=== PATIENT | female | born 1935 | race Caucasian/White ===

== ENCOUNTER 2018-01-26 16:50 | Emergency (ER) | payer MEDICARE, OTHER ==
--- NOTE | 2018-01-26 17:17 | EDM.PDOC ---
ED HPI GENERAL MEDICAL PROBLEM - General Chief Complaint: Genitourinary Problem Stated Complaint: CONFUSION,DEMENTIA,UTI Time Seen by Provider: 01/26/18 17:00 Source of Information: Reports: Patient, Other (caregiver) History Limitations: Reports: No Limitations - History of Present Illness INITIAL COMMENTS - FREE TEXT/NARRATIVE: 82 YO WF presents to ER with 1 day history of mild confusion per caregiver. Pt had a similar episode of confusion in the recent past and was diagnosed with UTI. Caregiver states her symptoms are similar today. Pt reports some nasal congestion without coughing as well as mild frontal headache. Pt denies any chest pain, abdominal pain, fever/chills, nausea/vomiting. Pt with history of dementia. Caregiver states she had been at her baseline mental status until today. Onset: Today Location: Reports: Generalized Severity: Mild Improves with: Reports: None Worsens with: Reports: None Associated Symptoms: Reports: Confusion, Headaches. Denies: Chest Pain, Cough, Fever/Chills, Loss of Appetite, Malaise, Nausea/Vomiting, Rash, Shortness of Breath, Syncope, Weakness - Related Data Allergies Allergy/AdvReac Type Severity Reaction Status Date / Time No Known Drug Allergies Allergy Cannot Verified 01/26/18 17:06 Remember Home Meds: Home Meds Aspirin [Halfprin] 81 mg PO DAILY 01/26/18 [History] Biotin 1 mg PO DAILY 01/26/18 [History] Calcium Carbonate/Vitamin D3 [Calcium 500 + Vit D 400] 1 tab PO DAILY@1200 01/26 [History] Cephalexin [Keflex] 500 mg PO Q6H #40 capsule 01/26/18 [Rx] Cholecalciferol (Vitamin D3) [Vitamin D3] 1,000 unit PO DAILY 01/26/18 [History] Citalopram Hydrobromide [Celexa] 20 mg PO DAILY 01/26/18 [History] Multivitamin [Daily Multiple Vitamin] 1 tab PO DAILY 01/26/18 [History] Simvastatin [Zocor] 30 mg PO BEDTIME 01/26/18 [History] buPROPion [buPROPion XL] 300 mg PO DAILY 01/26/18 [History] ED ROS GENERAL - Review of Systems Review Of Systems: See Below Constitutional: Reports: No Symptoms HEENT: Reports: Sinus Problem Respiratory: Reports: No Symptoms Cardiovascular: Reports: No Symptoms Endocrine: Reports: No Symptoms GI/Abdominal: Reports: No Symptoms : Reports: No Symptoms Musculoskeletal: Reports: No Symptoms Skin: Reports: No Symptoms Neurological: Reports: Confusion, Dizziness, Headache. Denies: Numbness, Paresthesia, Seizure, Syncope, Tingling, Tremors, Trouble Speaking, Difficulty Walking, Weakness, Change in Speech, Gait Disturbance Psychiatric: Reports: Confusion Hematologic/Lymphatic: Reports: No Symptoms Immunologic: Reports: No Symptoms ED EXAM, GENERAL - Physical Exam Exam: See Below Exam Limited By: No Limitations General Appearance: Alert, WD/WN, No Apparent Distress Nose: Normal Inspection, Normal Mucosa, No Blood Throat/Mouth: Normal Inspection, Normal Lips, Normal Teeth, Normal Gums, Normal Oropharynx, Normal Voice, No Airway Compromise Head: Atraumatic, Normocephalic Neck: Normal Inspection, Supple, Non-Tender, Full Range of Motion Respiratory/Chest: No Respiratory Distress, Lungs Clear, Normal Breath Sounds, No Accessory Muscle Use, Chest Non-Tender Cardiovascular: Normal Peripheral Pulses, Regular Rate, Rhythm, No Edema, No Gallop, No JVD, No Murmur, No Rub GI/Abdominal: Normal Bowel Sounds, Soft, Non-Tender, No Organomegaly, No Distention, No Abnormal Bruit, No Mass Back Exam: Normal Inspection, Full Range of Motion, NT Extremities: Normal Inspection, Normal Range of Motion, Non-Tender, Normal Capillary Refill, No Pedal Edema Neurological: Alert, Oriented, CN II-XII Intact, Normal Cognition, Normal Gait, Normal Reflexes, No Motor/Sensory Deficits Psychiatric: Normal Affect, Normal Mood Skin Exam: Warm, Dry, Intact, Normal Color, No Rash Lymphatic: No Adenopathy Course - Vital Signs Last Recorded V/S: Last Vital Signs Temp 36.6 C 01/26/18 16:59 Pulse 84 01/26/18 16:59 Resp 16 01/26/18 16:59 BP 128/66 01/26/18 16:59 Pulse Ox 94 L 01/26/18 16:59 - Orders/Labs/Meds Orders: Active Orders 24 hr Category Date Time Status Chest 2V [CR] Stat Exams 01/26/18 17:10 Taken Head wo Cont [CT] Stat Exams 01/26/18 17:10 Taken URINALYSIS W/MICROSCOPIC [UA W/MICROSCOPIC] [URIN] Stat Lab 01/26/18 17:00 Ordered Labs: Laboratory Tests 01/26/18 01/26/18 01/26/18 Range/Units 17:00 17:25 17:25 WBC 6.4 (5.0-10.0) 10^3/uL RBC 4.17 (3.80-5.50) 10^6/uL Hgb 13.0 (12.0-16.0) g/dL Hct 38.5 (37.0-47.0) % MCV 92.2 H (82.0-92.0) fL MCH 31.2 H (27.0-31.0) pg MCHC 33.9 (32.0-36.0) g/dL RDW 12.4 (11.5-14.5) % Plt Count 201 (150-300) 10^3/uL MPV 8.2 (7.4-10.4) fL Neut % (Auto) 72.7 H (50.0-70.0) % Lymph % (Auto) 10.7 L (20.0-40.0) % [place] % (Auto) 15.5 H (2.0-8.0) % Eos % (Auto) 0.6 L (1.0-3.0) % Baso % (Auto) 0.5 (0.0-1.0) % Neut # (Auto) 4.7 (2.5-7.0) 10^3/uL Lymph # (Auto) 0.7 L (1.0-4.0) 10^3/uL [place] # (Auto) 1.0 H (0.1-0.8) 10^3/uL Eos # (Auto) 0.0 L (0.1-0.3) 10^3/uL Baso # (Auto) 0.0 (0.0-0.1) 10^3/uL Sodium 137 (136-145) mmol/L Potassium 4.2 (3.3-5.3) mmol/L Chloride 101 (98-115) mmol/L Carbon Dioxide 27.6 (21.0-32.0) mmol/L BUN 15 (6-25) mg/dL Creatinine 0.89 (0.51-1.17) mg/dL Est Cr Clr Drug Dosing 49.03 mL/min Estimated GFR (MDRD) > 60 mL/min Glucose 146 H (70-110) mg/dL Calcium 9.5 (8.7-10.3) mg/dL Specimen Type Urinvoid Urine Color Yellow (YELLOW) Urine Appearance Slightly cloudy H (CLEAR) Urine pH 6.5 (5.0-9.0) Ur Specific [place] 1.025 (1.005-1.030) Urine Protein Negative (NEGATIVE) mg/dL Urine Glucose (UA) 100 H (NEGATIVE) mg/dL Urine Ketones Negative (NEGATIVE) mg/dL Urine Occult Blood Trace-intact H (NEGATIVE) Urine Nitrite Negative (NEGATIVE) Urine Bilirubin Negative (NEGATIVE) Urine Urobilinogen 0.2 (0.2-1.0) E.U./dL Ur Leukocyte Esterase Negative (NEGATIVE) Urine RBC 10-20 H /HPF Urine WBC 0-5 /HPF Ur Epithelial Cells Few /LPF Amorphous Sediment Moderate H (0/HPF) /HPF Urine Bacteria Few (NONE TO FEW) /HPF - Radiology Interpretation Free Text/Narrative:: CXR- NAD CT head- NAD Departure - Departure Time of Disposition: 18:09 Disposition: Home, Self-Care 01 Condition: Good Clinical Impression: UTI, Urinary tract infectious disease, Confusion - Discharge Information Prescriptions: Cephalexin [Keflex] 500 mg PO Q6H #40 capsule Instructions: Urinary Tract Infection, Adult, [id number] Referrals: Farida Banerjee MD [Primary Care Provider] - Forms: ED Department Discharge - My Orders Last 24 Hours: My Active Orders 01/26/18 17:00 URINALYSIS W/MICROSCOPIC [UA W/MICROSCOPIC] [URIN] Stat 01/26/18 17:10 Chest 2V [CR] Stat Head wo Cont [CT] Stat - Assessment/Plan Last 24 Hours: My Active Orders 01/26/18 17:00 URINALYSIS W/MICROSCOPIC [UA W/MICROSCOPIC] [URIN] Stat 01/26/18 17:10 Chest 2V [CR] Stat Head wo Cont [CT] Stat Assessment:: 1. mild confusion with underlying progressive dementia 2. UTI Plan: 1. Keflex 500mg PO Q6 2. follow up in clinic in 1-2 days for further evaluation and treatment 3. return to ER for worsening symptoms 4. discharge home
[2018-01-26 17:45] LABS: CHLORIDE,CL 101 mmol/L (98-115); SODIUM,NA 137 mmol/L (136-145)
[2018-01-26] MEDS: Lidocaine 1% 20 ML MDV ONE (18:16)
[2018-01-26] MEDS: cefTRIAXone 1 GM Vial IM ONE (18:17)
== END 2018-01-26 18:25 | disposition home or self-care (01) ==
LOC: KA.ED 16:50
DX: N39.0 Urinary tract infection, site not specified (principal); R41.0 Disorientation, unspecified; Z79.82 Long term (current) use of aspirin; Z79.899 Other long term (current) drug therapy
CPT/HCPCS: 36415; 70450; 71046; 80048; 81001; 85025; 87086; 96372; 99284; 99285; J0696

== ENCOUNTER 2019-02-05 08:25 | Emergency (ER) | payer MEDICARE, OTHER ==
[2019-02-05] MEDS ORDERED: Sodium Chloride 0.9% 1,000 ML IV ONE (09:30)
[2019-02-05 09:56] LABS: ANION GAP 4.4 mmol/L (5-15); CHLORIDE,CL 105 mmol/L (98-115); SODIUM,NA 132 mmol/L (136-145)
--- NOTE | 2019-02-05 10:08 | EDM.PDOC ---
ED HPI GENERAL MEDICAL PROBLEM - General Chief Complaint: General Stated Complaint: CONFUSION, WEAK SPELLS Time Seen by Provider: 02/05/19 09:00 Source of Information: Reports: Patient, Family (daughter) History Limitations: Reports: No Limitations - History of Present Illness INITIAL COMMENTS - FREE TEXT/NARRATIVE: 83-year-old female is brought in this morning by her daughter for an evaluation. Mrs. Klein has a history of dementia and her daughter comes back every 2 weeks from [facility] to stay with her. When she is gone they have a health care providers in her mom's home. She has some early Alzheimer's dementia and therefore has some confusion and short-term memory loss. Yesterday evening her mother was up 6 or 7 times throughout the night walking around the house which is unusual behavior for her. There is no agitation. She has not had any recent illnesses or fever. She's not had a recent cold. States that she just kind of felt out of sorts yesterday. She described this episode as a dizziness. She denies been unsteady on her feet. She denies vertigo. She is not having any nasal congestion or ear pain or sore throat. She's not having any shortness of breath or chest pain. She denies any abdominal pain, constipation or diarrhea, no dysuria or hematuria. She does seem to drink a fair amount of water throughout the day. She takes medication for blood pressure cholesterol depression and diabetes. Her blood sugars have been running in the mid 100s to 200. She takes metformin for this. She is not on insulin. She does not take any medication for Alzheimer's. She is not on Aricept. Today the patient and her daughter both agree she seems to be in her normal state. We'll check her electrolytes, CBC, and UA to make sure that there is no underlying infection. Onset Date: 02/04/19 Duration: Resolved Prior to Arrival Location: Reports: Generalized Improves with: Reports: None Worsens with: Reports: None Associated Symptoms: Reports: Confusion. Denies: Chest Pain, Cough, Fever/ Chills, Headaches, Nausea/Vomiting, Shortness of Breath, Syncope, Weakness - Related Data Allergies Allergy/AdvReac Type Severity Reaction Status Date / Time No Known Drug Allergies Allergy Cannot Verified 02/05/19 09:54 Remember Home Meds: Home Meds Aspirin [Halfprin] 81 mg PO DAILY 01/26/18 [History] Biotin 1 mg PO DAILY 01/26/18 [History] Calcium Carbonate/Vitamin D3 [Calcium 500 + Vit D 400] 1 tab PO DAILY@1200 01/26 [History] Cholecalciferol (Vitamin D3) [Vitamin D3] 1,000 unit PO DAILY 01/26/18 [History] Citalopram Hydrobromide [Celexa] 20 mg PO DAILY 01/26/18 [History] Multivitamin [Daily Multiple Vitamin] 1 tab PO DAILY 01/26/18 [History] Simvastatin [Zocor] 30 mg PO BEDTIME 01/26/18 [History] buPROPion [buPROPion XL] 300 mg PO DAILY 01/26/18 [History] 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 Denies: Ear Pain, Sinus Problem, Throat Pain, Throat Swelling, Vertigo Respiratory: Denies: Shortness of Breath, Wheezing Cardiovascular: Reports: Blood Pressure Problem, Lightheadedness. Denies: Chest Pain, Dyspnea on Exertion, Palpitations Endocrine: Reports: High Glucose GI/Abdominal: Denies: Abdominal Pain, Bloody Stool, Constipation, Diarrhea, Nausea, Vomiting Musculoskeletal: Reports: No Symptoms Skin: Reports: No Symptoms Neurological: Reports: Confusion (dementia, Up several times last night which is unusual.). Denies: Headache, Numbness, Paresthesia, Trouble Speaking, Difficulty Walking, Change in Speech, Gait Disturbance Psychiatric: Reports: Confusion (dementia) Hematologic/Lymphatic: Reports: No Symptoms Immunologic: Reports: No Symptoms ED EXAM, GENERAL - Physical Exam Exam: See Below Exam Limited By: No Limitations (answers questions but doesnt remember events from night before. Ask her daughter for those answers) General Appearance: Alert, WD/WN, No Apparent Distress Eye Exam: Bilateral Eye: EOMI, PERRL Ears: Normal External Exam, Normal Canal, Hearing Grossly Normal, Normal TMs Ear Exam: Bilateral Ear: Auricle Normal, Canal Normal, TM normal Nose: Normal Inspection, Normal Mucosa, No Blood Throat/Mouth: Normal Inspection, Normal Lips, Normal Teeth, Normal Gums, Normal Oropharynx, Normal Voice, No Airway Compromise Head: Atraumatic, Normocephalic Neck: Normal Inspection, Supple, Non-Tender, Full Range of Motion. No: Lymphadenopathy (L), Lymphadenopathy (R) Respiratory/Chest: No Respiratory Distress, Lungs Clear, Normal Breath Sounds Cardiovascular: Normal Peripheral Pulses, Regular Rate, Rhythm, No Edema Peripheral Pulses: 2+: Carotid (L), Carotid (R), Radial (L), Radial (R) GI/Abdominal: Soft, Non-Tender Back Exam: Normal Inspection Extremities: Normal Inspection, Normal Range of Motion, Non-Tender, No Pedal Edema Neurological: Alert, Oriented, CN II-XII Intact, Normal Cognition, Normal Gait, No Motor/Sensory Deficits Psychiatric: Normal Affect, Normal Mood Skin Exam: Warm, Dry, Intact, Normal Color, No Rash Lymphatic: No Adenopathy Course - Vital Signs Last Recorded V/S: Last Vital Signs Temp 98.1 F 02/05/19 09:01 Pulse 68 02/05/19 09:01 Resp 19 02/05/19 09:01 BP 133/66 02/05/19 09:01 Pulse Ox 92 L 02/05/19 09:01 - Orders/Labs/Meds Orders: Active Orders 24 hr Category Date Time Status CULTURE URINE [RM] Stat Lab 02/05/19 10:21 Ordered Labs: Laboratory Tests 02/05/19 02/05/19 02/05/19 Range/Units 09:30 09:30 09:42 WBC 8.22 (5.00-10.00) 10^3/uL RBC 4.02 (3.80-5.50) 10^6/uL Hgb 13.1 (12.0-16.0) g/dL Hct 37.1 (37.0-47.0) % MCV 92.3 H (82.0-92.0) fL MCH 32.6 H (27.0-31.0) pg MCHC 35.3 (32.0-36.0) g/dL RDW 12.0 (11.5-14.5) % Plt Count 238 (150-400) 10^3/uL MPV 10.3 (7.4-10.4) fL Immature Gran % (Auto) 0.2 (0.0-5.0) % Neut % (Auto) 72.5 H (50.0-70.0) % Lymph % (Auto) 17.3 L (20.0-40.0) % [place] % (Auto) 9.1 H (2.0-8.0) % Eos % (Auto) 0.7 L (1.0-3.0) % Baso % (Auto) 0.2 (0.0-1.0) % Immature Gran # (Auto) 0.02 (0.00-0.50) 10^3/uL Neut # (Auto) 5.95 (2.50-7.00) 10^3/uL Lymph # (Auto) 1.42 (1.00-4.00) 10^3/uL [place] # (Auto) 0.75 (0.10-0.80) 10^3/uL Eos # (Auto) 0.06 L (0.10-0.30) 10^3/uL Baso # (Auto) 0.02 (0.00-0.10) 10^3/uL Sodium 132 L (136-145) mmol/L Potassium 4.0 (3.3-5.3) mmol/L Chloride 105 (98-115) mmol/L Carbon Dioxide 26.6 (21.0-32.0) mmol/L Anion Gap 4.4 L (5-15) mmol/L BUN 18 (6-25) mg/dL Creatinine 0.95 (0.51-1.17) mg/dL Est Cr Clr Drug Dosing TNP Estimated GFR (MDRD) 56 mL/min Glucose 111 H (75 - 99) mg/dL Calcium 9.7 (8.7-10.3) mg/dL Specimen Type Urincc Urine Color Yellow (YELLOW) Urine Appearance Clear (CLEAR) Urine pH 7.0 (5.0-9.0) Ur Specific [place] 1.015 (1.005-1.030) Urine Protein Negative (NEGATIVE) mg/dL Urine Glucose (UA) Negative (NEGATIVE) mg/dL Urine Ketones Negative (NEGATIVE) mg/dL Urine Occult Blood Trace-intact H (NEGATIVE) Urine Nitrite Negative (NEGATIVE) Urine Bilirubin Negative (NEGATIVE) Urine Urobilinogen 0.2 (0.2-1.0) E.U./dL Ur Leukocyte Esterase Trace H (NEGATIVE) Urine RBC 0-5 (0-5) /HPF Urine WBC 5-10 H (0-5) /HPF Ur Epithelial Cells Moderate H /LPF Amorphous Sediment Many H (0/HPF) /HPF Urine Bacteria Moderate H (NONE TO FEW) /HPF Meds: Medications Discontinued Medications Generic Name Dose Route Start Last Admin Trade Name Yolanda PRN Reason Stop Dose Admin Sodium Chloride 1,000 mls @ 999 mls/hr 02/05/19 09:30 02/05/19 10:09 Normal Saline IV 02/05/19 10:30 999 mls/hr .BOLUS ONE Administration Departure - Departure Time of Disposition: 11:00 Disposition: Home, Self-Care 01 Condition: Good Clinical Impression: Hyponatremia Dementia Qualifiers: Dementia type: unspecified type Dementia behavioral disturbance: without behavioral disturbance Qualified Code(s): F03.90 - Unspecified dementia without behavioral disturbance - Discharge Information Referrals: Farida Banerjee MD [Primary Care Provider] - Forms: ED Department Discharge - My Orders Last 24 Hours: My Active Orders 02/05/19 10:21 CULTURE URINE [RM] Stat - Assessment/Plan Last 24 Hours: My Active Orders 02/05/19 10:21 CULTURE URINE [RM] Stat Assessment:: Early dementia Mild hyponatremia Plan: 1. Patient received 1 L of normal saline. This should help resolve mild hyponatremia. 2. Her urine culture showed moderate bacteria but also a moderate epithelial cells which is likely contaminant. Her urine looked clear without odor. We'll plan on culturing at bedtime [place] to treat this as this is likely contaminant. 3. Patient has a follow-up appointment this Thursday with Dr. Farida Burns encourage him to review her medications and her episode that she was seen in the emergency room today. Also have follow-up blood cultures with regards to her UA. 4. Encourage return to the emergency room and we've discussed signs and symptoms to look for for a stroke.
== END 2019-02-05 11:00 | disposition home or self-care (01) ==
LOC: KA.ED 08:25
DX: E87.1 Hypo-osmolality and hyponatremia (principal); F03.90 Unspecified dementia, unspecified severity, without behavioral disturbance, psychotic disturbance, mood disturbance, and anxiety; F32.9 Major depressive disorder, single episode, unspecified; Z79.82 Long term (current) use of aspirin; Z79.899 Other long term (current) drug therapy
CPT/HCPCS: 36415; 80048; 81001; 85025; 87086; 96360; 99284; 99284-25; J7030

== ENCOUNTER 2019-04-30 17:22 | Emergency (ER) | payer MEDICARE, OTHER ==
--- NOTE | 2019-04-30 18:45 | EDM.PDOC ---
ED HPI GENERAL MEDICAL PROBLEM - General Chief Complaint: Lower Extremity Injury/Pain Stated Complaint: LEFT LEG SWELLING Time Seen by Provider: 04/30/19 18:50 Source of Information: Reports: Patient History Limitations: Reports: No Limitations - History of Present Illness INITIAL COMMENTS - FREE TEXT/NARRATIVE: Patient is an 83-year-old female who presents to the emergency department this afternoon with a complaint of left lower extremity pain and edema. Patient states that she has occasional edema of lower extremities, but noticed that the left one is more swollen and is more painful. The symptoms started approximately 36 hours ago. Patient is currently on 81 mg aspirin daily, but not on any anticoagulation therapy. Patient has no history of DVTs or PEs. Patient denies shortness of breath, chest pain, abdominal pain, nausea, vomiting , diarrhea, or any trauma. Onset: Gradual Onset Date: 04/28/19 Duration: Day(s): Location: Reports: Lower Extremity, Left Severity: Mild Improves with: Reports: None Worsens with: Reports: None Associated Symptoms: Reports: No Other Symptoms. Denies: Chest Pain, Shortness of Breath Left Ankle Pain Score (Numeric/FACES): 3 - Related Data Allergies Allergy/AdvReac Type Severity Reaction Status Date / Time No Known Drug Allergies Allergy Cannot Verified 04/30/19 17:53 Remember Home Meds: Home Meds Aspirin [Halfprin] 81 mg PO DAILY 01/26/18 [History] Calcium Carbonate/Vitamin D3 [Calcium 500 + Vit D 400] 1 tab PO DAILY@1200 01/26 [History] Cholecalciferol (Vitamin D3) [Vitamin D3] 1,000 unit PO DAILY 01/26/18 [History] Citalopram Hydrobromide [Celexa] 20 mg PO DAILY 01/26/18 [History] Multivitamin [Daily Multiple Vitamin] 1 tab PO DAILY 01/26/18 [History] Simvastatin [Zocor] 30 mg PO BEDTIME 01/26/18 [History] buPROPion [buPROPion XL] 300 mg PO DAILY 01/26/18 [History] metFORMIN HCl [Metformin HCl] 500 mg PO DAILY 04/30/19 [History] Past Medical History HEENT History: Reports: Cataract, Impaired Vision Cardiovascular History: Reports: High Cholesterol, Hypertension Gastrointestinal History: Reports: None 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: Musculoskeletal History: Reports: None Neurological History: Reports: Other (See Below) Other Neuro History: dementia Psychiatric History: Reports: Anxiety, Dementia, Depression Endocrine/Metabolic History: Reports: Diabetes, Type II - Past Surgical History HEENT Surgical History: Reports: Cataract Surgery, Tonsillectomy Cardiovascular Surgical History: Reports: None GI Surgical History: Reports: Cholecystectomy, Colonoscopy Neurological Surgical History: Reports: None Social & Family History - Tobacco Use Smoking Status *Q: Never Smoker - Caffeine Use Caffeine Use: Reports: Coffee - Recreational Drug Use Recreational Drug Use: No Review of Systems - Review of Systems Review Of Systems: ROS reveals no pertinent complaints other than HPI. Constitutional: Reports: No Symptoms Eyes: Reports: No Symptoms Ears: Reports: No Symptoms Nose: Reports: No Symptoms Mouth/Throat: Reports: No Symptoms Respiratory: Reports: No Symptoms Cardiovascular: Reports: No Symptoms GI/Abdominal: Reports: No Symptoms Genitourinary: Reports: No Symptoms Musculoskeletal: Reports: Leg Pain (Left) Skin: Reports: Other (Left lower extremity edema) Neurological: Reports: No Symptoms Psychiatric: Reports: No Symptoms ED EXAM, GENERAL - Physical Exam Exam: See Below Exam Limited By: No Limitations General Appearance: Alert, WD/WN, No Apparent Distress Throat/Mouth: Normal Inspection, Normal Oropharynx, No Airway Compromise Head: Atraumatic, Normocephalic Neck: Normal Inspection Respiratory/Chest: No Respiratory Distress, Lungs Clear, Normal Breath Sounds, No Accessory Muscle Use, Chest Non-Tender Cardiovascular: Regular Rate, Rhythm, No Murmur GI/Abdominal: Normal Bowel Sounds, Soft, Non-Tender Back Exam: Normal Inspection. No: CVA Tenderness (L), CVA Tenderness (R) Extremities: Normal Capillary Refill, Pedal Edema (3+ left lower extremity. This extends from mid calf- Distal), Leg Pain Neurological: Alert, Oriented, Normal Cognition Psychiatric: Normal Affect, Normal Mood Skin Exam: Warm, Dry, Intact, Normal Color, No Rash Lymphatic: No Adenopathy Course - Vital Signs Last Recorded V/S: Last Vital Signs Temp 98.7 F 04/30/19 17:44 Pulse 77 04/30/19 17:44 Resp 20 04/30/19 17:44 BP 155/71 H 04/30/19 17:44 Pulse Ox 96 04/30/19 17:44 - Re-Assessments/Exams Free Text/Narrative Re-Assessment/Exam: 04/30/19 19:01 Patient afebrile, vital signs stable, discussed with patient and sister in length concern for possible DVT. Discussed with Dr. FERNANDES at [facility] and she will see patient upon presentation. Patient will proceed to [facility] via private vehicle. Departure - Departure Time of Disposition: 19:03 Disposition: Home, Self-Care 01 Condition: Good Clinical Impression: Lower extremity edema - Discharge Information Instructions: Peripheral Edema Referrals: Farida Banerjee MD [Primary Care Provider] - Additional Instructions: Proceed directly to [facility] emergency department for evaluation of lower extremity edema to rule out DVT. - Assessment/Plan Assessment:: Left lower extremity edema, suspicion for DVT Plan: Patient will proceed to [facility] via private vehicle
== END 2019-04-30 19:10 | disposition home or self-care (01) ==
LOC: KA.ED 17:22
DX: R60.0 Localized edema (principal); E78.00 Pure hypercholesterolemia, unspecified; I10 Essential (primary) hypertension; E11.9 Type 2 diabetes mellitus without complications; F32.9 Major depressive disorder, single episode, unspecified; F41.9 Anxiety disorder, unspecified; Z79.82 Long term (current) use of aspirin; Z79.899 Other long term (current) drug therapy; Z79.84 Long term (current) use of oral hypoglycemic drugs
CPT/HCPCS: 99283; 99284

== ENCOUNTER 2021-12-27 10:25 | Emergency (ER) | payer MEDICARE, OTHER | END 2021-12-27 11:30 | disposition home or self-care (01) | LOC: KA.ED 10:25 | DX: S00.03XA Contusion of scalp, initial encounter (principal); F03.90 Unspecified dementia, unspecified severity, without behavioral disturbance, psychotic disturbance, mood disturbance, and anxiety; E78.00 Pure hypercholesterolemia, unspecified; I10 Essential (primary) hypertension; E11.9 Type 2 diabetes mellitus without complications; Z79.84 Long term (current) use of oral hypoglycemic drugs; W18.09XA Striking against other object with subsequent fall, initial encounter | CPT/HCPCS: 70450; 99283-25; 99284 ==

== ENCOUNTER 2022-05-29 09:24 | Emergency (ER) | payer MEDICARE, OTHER | END 2022-05-29 11:45 | disposition home or self-care (01) | LOC: KA.ED 09:24 | DX: M17.11 Unilateral primary osteoarthritis, right knee (principal); M16.11 Unilateral primary osteoarthritis, right hip; M47.816 Spondylosis without myelopathy or radiculopathy, lumbar region; M53.3 Sacrococcygeal disorders, not elsewhere classified; I10 Essential (primary) hypertension; E11.9 Type 2 diabetes mellitus without complications; Z79.899 Other long term (current) drug therapy; Z79.84 Long term (current) use of oral hypoglycemic drugs; Z90.49 Acquired absence of other specified parts of digestive tract | CPT/HCPCS: 72202; 72220; 73562-RT; 99283; 99285 ==

== ENCOUNTER 2022-06-01 19:04 | Emergency (ER) | payer MEDICARE, OTHER ==
[2022-06-01] MEDS: Sulfamethoxazole/Trimethoprim 800-160 MG Tab PO ONE (19:44)
== END 2022-06-01 19:50 | disposition home or self-care (01) ==
LOC: KA.ED 19:04
DX: N39.0 Urinary tract infection, site not specified (principal); F03.90 Unspecified dementia, unspecified severity, without behavioral disturbance, psychotic disturbance, mood disturbance, and anxiety; R44.1 Visual hallucinations; I10 Essential (primary) hypertension; E11.9 Type 2 diabetes mellitus without complications; Z79.899 Other long term (current) drug therapy; Z79.84 Long term (current) use of oral hypoglycemic drugs; Z90.49 Acquired absence of other specified parts of digestive tract
CPT/HCPCS: 81001; 87086; 99284; A9270-GY

== ENCOUNTER 2022-12-30 12:59 | Emergency (ER) | payer MEDICARE, OTHER | END 2022-12-30 14:50 | disposition home or self-care (01) | LOC: KA.ED 12:59 | DX: S09.90XA Unspecified injury of head, initial encounter (principal); I10 Essential (primary) hypertension; E11.9 Type 2 diabetes mellitus without complications; Z79.899 Other long term (current) drug therapy; W18.09XA Striking against other object with subsequent fall, initial encounter | CPT/HCPCS: 70450; 81001; 99283; 99284 ==

== ENCOUNTER 2023-03-09 10:42 | Emergency (ER) | payer MEDICARE, OTHER ==
[2023-03-09] MEDS ORDERED: Sodium Chloride 0.9% 10 ML Syringe FLUSH PRN (10:53)
[2023-03-09 11:10] LABS: BASOPHILS ABSOLUTE AUTO 0.02 10^3/uL (0.00-0.10); BASOPHILS PERCENT AUTO 0.3 % (0.0-1.0); EOSINOPHILS ABSOLUTE AUTO 0.02 10^3/uL (0.10-0.30); EOSINOPHILS PERCENT AUTO 0.3 % (1.0-3.0); HEMATOCRIT 38.2 % (37.0-47.0); HEMOGLOBIN 12.6 g/dL (12.0-16.0); IMMATURE GRAN ABSOLUTE AUTO 0.01 10^3/uL (0.00-0.50); IMMATURE GRAN PERCENT AUTO 0.1 % (0.0-5.0); LYMPHOCYTES ABSOLUTE AUTO 1.21 10^3/uL (1.00-4.00); LYMPHOCYTES PERCENT AUTO 15.8 % (20.0-40.0); MEAN CORPUSCULAR HEMOGLOBIN 30.7 pg (27.0-31.0); MEAN CORPUSCULAR VOLUME 93.2 fL (82.0-92.0); MEAN PLATELET VOLUME 10.2 fL (7.4-10.4); MONOCYTES ABSOLUTE AUTO 0.94 10^3/uL (0.10-0.80); MONOCYTES PERCENT AUTO 12.3 % (2.0-8.0); NEUTROPHILS ABSOLUTE AUTO 5.46 10^3/uL (2.50-7.00); NEUTROPHILS PERCENT AUTO 71.2 % (50.0-70.0); PLATELET COUNT,PLT 258 10^3/uL (150-400); RED CELL DISTRIBUTION WIDTH 12.9 % (11.5-14.5); WHITE BLOOD CELL COUNT,WBC 7.66 10^3/uL (5.00-10.00)
[2023-03-09 11:39] LABS: ALBUMIN 2.98 g/dL (3.40-5.00); BILIRUBIN TOTAL 0.5 mg/dL (0.2-1.0); CALCIUM 9.1 mg/dL (8.7-10.3); CARBON DIOXIDE,CO2 29.4 mmol/L (21.0-32.0); CREATININE 0.98 mg/dL (0.51-1.17); EST CRCL DRUG DOSING (CG) 40.81 mL/min; PROTEIN TOTAL,TP 6.3 g/dL (6.4-8.2)
[2023-03-09 11:44] LABS: APPEARANCE,URINE CLEAR (CLEAR); BILIRUBIN,URINE NEGATIVE (NEGATIVE); COLOR,URINE YELLOW (YELLOW); GLUCOSE,URINE 100 mg/dL (NEGATIVE); KETONES,URINE NEGATIVE (NEGATIVE); LEUKOCYTE ESTERASE,URINE NEGATIVE (NEGATIVE); NITRITE,URINE NEGATIVE (NEGATIVE); OCCULT BLOOD,URINE TRACE-INTACT (NEGATIVE); PROTEIN,URINE NEGATIVE (NEGATIVE); UROBILINOGEN,URINE 0.2 E.U./dL (0.2-1.0)
[2023-03-09 12:04] LABS: AMORPHOUS SEDIMENT,URINE FEW /HPF (0/HPF); BACTERIA,URINE FEW /HPF (NONE TO FEW); EPITHELIAL CELLS,URINE RARE /LPF; WBC,URINE 0-5 /HPF (0-5)
[2023-03-09 12:24] LABS: ANION GAP 11.6 mmol/L (5-15)
== END 2023-03-09 13:25 | disposition home or self-care (01) ==
LOC: KA.ED 10:42
DX: R41.0 Disorientation, unspecified (principal); I10 Essential (primary) hypertension; E11.9 Type 2 diabetes mellitus without complications
CPT/HCPCS: 36415; 71045; 80053; 81001; 83880; 84484; 85025; 93005; 93010; 99284; 99285

== ENCOUNTER 2023-03-26 09:29 | Emergency (ER) | payer MEDICARE, OTHER ==
[2023-03-26 11:32] LABS: APPEARANCE,URINE SLIGHTLY CLOUDY (CLEAR); BILIRUBIN,URINE NEGATIVE (NEGATIVE); COLOR,URINE YELLOW (YELLOW); GLUCOSE,URINE NEGATIVE (NEGATIVE); KETONES,URINE NEGATIVE (NEGATIVE); LEUKOCYTE ESTERASE,URINE SMALL (NEGATIVE); NITRITE,URINE NEGATIVE (NEGATIVE); OCCULT BLOOD,URINE NEGATIVE (NEGATIVE); PROTEIN,URINE NEGATIVE (NEGATIVE); UROBILINOGEN,URINE 0.2 E.U./dL (0.2-1.0)
[2023-03-26 11:39] LABS: EPITHELIAL CELLS,URINE FEW /LPF; RBC,URINE 0-5 /HPF (0-5)
[2023-03-26 11:40] LABS: BACTERIA,URINE FEW /HPF (NONE TO FEW)
== END 2023-03-26 12:22 | disposition home or self-care (01) ==
LOC: KA.ED 09:29
DX: R07.81 Pleurodynia (principal); M25.561 Pain in right knee; I10 Essential (primary) hypertension; E11.9 Type 2 diabetes mellitus without complications; Z79.899 Other long term (current) drug therapy
CPT/HCPCS: 71101-LT; 81001; 87086; 87088; 99283; 99284

== ENCOUNTER 2023-06-07 10:01 | Emergency (ER) | payer MEDICARE, OTHER | END 2023-06-07 11:08 | disposition home or self-care (01) | LOC: KA.ED 10:01 | DX: M25.551 Pain in right hip (principal); E78.00 Pure hypercholesterolemia, unspecified; I10 Essential (primary) hypertension; E11.9 Type 2 diabetes mellitus without complications; W18.30XA Fall on same level, unspecified, initial encounter | CPT/HCPCS: 99283; 99284 ==